=== PATIENT | female | born 1965 | race African-American/Black ===

== ENCOUNTER 2017-05-14 16:04 | Emergency (ER) | payer SELFPAY ==
[2017-05-14] MEDS ORDERED: KETOROLAC TROMETHAMINE INJ/PF 30 MG/1 ML SDV IM ONE (16:26)
--- NOTE | 2017-05-14 16:32 | ER Document Report ---
HPI - HPI Pain Level: 5 Notes: Patient is a 52-year-old female who presents ED complaining of right knee pain 1 month status post hitting her kneecap off of a door hinge. Patient states that she no longer has pain to the site of impact, but the medial and lateral knee are starting to hurt with intermittent swelling and intermittent locking and popping noted. Patient states that she did have previous surgery to that right knee for a torn meniscus in the past. Patient states that she is still ambulatory without any difficulties otherwise. Patient states that she would like a shot for pain. No other concerns or complaints. Denies any other significant past medical history. Denies any headache, fever, neck pain, URI, sore throat, chest pain, palpitations, syncope, cough, shortness of breath, wheeze, dyspnea, abdominal pain, nausea/vomiting/diarrhea, urinary retention, dysuria, hematuria, loss of control of bowel or bladder, numbness/tingling, muscle paralysis/weakness, or rash. - ROS Notes: REVIEW OF SYSTEMS: CONSTITUTIONAL : Denies fever, chills, or sweats. Denies recent illness. EENT: Denies eye, ear, throat, or mouth pain or symptoms. Denies nasal or sinus congestion or discharge. Denies throat, tongue, or mouth swelling or difficulty swallowing. CARDIOVASCULAR: Denies chest pain. Denies palpitations or racing or irregular heart beat. Denies ankle edema. RESPIRATORY: Denies cough, cold, or chest congestion. Denies shortness of breath, difficulty breathing, or wheezing. GASTROINTESTINAL: Denies abdominal pain or distention. Denies nausea, vomiting , or diarrhea. Denies blood in vomitus, stools, or per rectum. Denies black, tarry stools. Denies constipation. GENITOURINARY: Denies difficulty urinating, painful urination, burning, frequency, blood in urine, or discharge. MUSCULOSKELETAL: see hpi SKIN: Denies rash, lesions or sores. NEUROLOGICAL: Denies dizziness or lightheadedness. Denies headache. Denies weakness or paralysis or loss of use of either side. Denies problems with gait or speech. Denies sensory loss, numbness, or tingling. Denies seizures. ALL OTHER SYSTEMS REVIEWED AND NEGATIVE. Dictation was performed using [employer] voice recognition software - REPRODUCTIVE LMP: 1998 Reproductive: DENIES: : Past Medical History - Social History Smoking Status: Unknown if Ever Smoked Family History: Reviewed & Not Pertinent - Past Medical History Cardiac Medical History: Reports: Hx Hypertension Psychiatric Medical History: Reports: Hx Depression Past Surgical History: Reports: Hx Hysterectomy, Hx Oral Surgery, Hx Orthopedic Surgery - bilateral knees, and right wrist, Hx Tubal Ligation - Immunizations Hx Diphtheria, Pertussis, Tetanus Vaccination: Yes Vertical Provider Document - CONSTITUTIONAL Agree With Documented VS: Yes Notes: PHYSICAL EXAMINATION: GENERAL: Well-appearing, well-nourished and in no acute distress. A&Ox4 LUNGS: Breath sounds clear to auscultation bilaterally and equal. No wheezes rales or rhonchi. HEART: Regular rate and rhythm without murmurs, rubs, gallops. Musculoskeletal: Rt knee: FROM to passive/active. Strength 5+/5. N/v intact distal. +? Amaya noted. Ligamentous stable. + mild tenderness to the b/l joint line. No effusion, erythema, warmth, swelling, or obvious deformity otherwise. No patellar tenderness or other bony tenderness noted. Extremities: No cyanosis, clubbing, or edema b/l. Peripheral pulses 2+. Capillary refill less than 3 seconds. NEUROLOGICAL: Normal speech, normal gait. Normal sensory, motor exams PSYCH: Normal mood, normal affect. SKIN: Warm, Dry, normal turgor, no rashes or lesions noted. - INFECTION CONTROL TRAVEL OUTSIDE OF THE [place] IN LAST 30 DAYS: No Course - Re-evaluation Re-evalutation: 05/14/17 16:29 Patient is an afebrile, well-hydrated, 52-year-old female who presents ED with right knee pain, I suspect possible internal involvement. Vitals are stable. PE is otherwise unremarkable for any neurovascular compromise, obvious tendon/ ligament rupture, obvious fracture or dislocation, or septic joint. I do not believe that an x-ray is warranted at this time as patient is ambulatory without any superficial signs of trauma and no other bony tenderness. I believe that the x-ray which is show me arthritic changes at this time which will not change my treatment recommendations the patient is to be evaluated by orthopedics. Patient is in agreement with not getting an x-ray today. Toradol 30 mg given IM today. I will give her any immobilizer that she may use as needed. Patient declined crutches. Recommend conservative measures for symptoms otherwise. Recheck with your PCM in 3-5 days. Schedule evaluation with orthopedics for further management. Return to the ED with any worsening/ concerning symptoms otherwise as reviewed in discharge. Patient is in agreement. Discharge - Discharge Clinical Impression: Right knee pain Qualifiers: Chronicity: acute Qualified Code(s): M25.561 - Pain in right knee Condition: Stable Disposition: HOME, SELF-CARE Instructions: Ice & Elevation ([facility]), Suspected Internal Knee Injury ([facility]), Knee Immobilizing Splint ([facility]) Additional Instructions: Rest, Ice, Compression, Elevation Use splint as directed Tylenol/ibuprofen as needed Light stretches daily Strength exercises as able Moist heat and massage may help F/u with your PCP in 3-5 days for a recheck Call and schedule an appointment with orthopedics for further evaluation and management Return to the ED with any worsening symptoms and/or development of fever, headache, chest pain, palpitations, syncope, shortness of breath, trouble breathing, abdominal pain, n/v/d, muscle weakness/paralysis, numbness/tingling, swelling, redness, or other worsening symptoms that are concerning to you. Forms: Elevated Blood Pressure Referrals: [facility] ([facility]) [Provider Group] - Follow up as needed
== END 2017-05-14 16:43 | disposition home or self-care (01) ==
LOC: ER 16:04
DX: M25.561 Pain in right knee (principal); W22.8XXA Striking against or struck by other objects, initial encounter
CPT/HCPCS: 99283; 96372; L1830; J1885